=== PATIENT | female | born 1990 | race American Indian/Alaskan Native ===

== ENCOUNTER 2017-05-22 08:23 | Emergency (ER) | payer MEDICAID, OTHER ==
[2017-05-22 08:34] VITALS: BP 119/80
--- NOTE | 2017-05-22 08:42 | EDM.PDOC ---
ED HPI GENERAL MEDICAL PROBLEM - General Chief Complaint: Genitourinary Problem Stated Complaint: 11 WEEKS REHANA [id number] Time Seen by Provider: 05/22/17 08:41 Source of Information: Reports: Patient, RN, RN Notes Reviewed History Limitations: Reports: No Limitations - History of Present Illness INITIAL COMMENTS - FREE TEXT/NARRATIVE: Patient presents to the ER with c/o low abdominal/pelvic pain bilaterally. She states she is 11 weeks and the pain began yesterday afternoon. She denies fever, chills, chest pain, sob. She admits to nausea and vomiting since yesterday afternoon. She rates the pain as an 8/10 and is sharp. She denies any vaginal bleeding or spotting. She does state she began having burning with urination yesterday. Onset Date: 05/21/17 Lower Abdomen Pain Score (Numeric/FACES): 8 - Related Data Allergies Allergy/AdvReac Type Severity Reaction Status Date / Time cefaclor [From Ceclor] Allergy Mild unknown Verified 05/22/17 08:34 Home Meds: Home Meds Vit No.130/Iron/FA [ Vitamins] 1 tab PO DAILY 08/29/15 [History ] Past Medical History - Past Health History Medical/Surgical History: Denies Medical/Surgical History HEENT History: Reports: Impaired Vision Other HEENT History: wears glasses Cardiovascular History: Reports: None Respiratory History: Reports: None Gastrointestinal History: Reports: None Genitourinary History: Reports: Renal Calculus 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: Reports: Dysfunctional Uterine Bleeding, Other OB/BYN History: is due 11/2017 Musculoskeletal History: Reports: Back Pain, Chronic Neurological History: Reports: None Psychiatric History: Reports: None Endocrine/Metabolic History: Reports: Other (See Below) Other Endocrine/Metabolic History: abnormal glucose tolerance test Hematologic History: Reports: None Immunologic History: Reports: None Oncologic (Cancer) History: Reports: None Dermatologic History: Reports: None - Past Surgical History Head Surgeries/Procedures: Reports: None GI Surgical History: Reports: Appendectomy Social & Family History - Tobacco Use Smoking Status *Q: Never Smoker Years of Tobacco use: 3 Packs/Tins Daily: 0.1 Used Tobacco, but Quit: Yes Month Tobacco Last Used: 01/2015 Second Hand Smoke Exposure: No - Caffeine Use Caffeine Use: Reports: None - Alcohol Use Days Per Week of Alcohol Use: 0 - Recreational Drug Use Recreational Drug Use: No ED ROS GENERAL - Review of Systems Review Of Systems: ROS reveals no pertinent complaints other than HPI. ED EXAM - Physical Exam Exam: See Below Exam Limited By: No Limitations General Appearance: Alert, WD/WN, No Apparent Distress Eye Exam: Bilateral Eye: Normal Inspection Ears: Normal External Exam Nose: Normal Inspection, Normal Mucosa, No Blood Throat/Mouth: Normal Inspection, Normal Lips, Normal Teeth, Normal Gums, Normal Oropharynx, Normal Voice, No Airway Compromise Head: Atraumatic, Normocephalic Neck: Normal Inspection, Supple, Non-Tender, Full Range of Motion Respiratory/Chest: No Respiratory Distress, Lungs Clear, Normal Breath Sounds, No Accessory Muscle Use, Chest Non-Tender Cardiovascular: Normal Peripheral Pulses, Regular Rate, Rhythm, No Edema, No Gallop, No JVD, No Murmur, No Rub GI/Abdominal Exam: Normal Bowel Sounds, Soft, No Organomegaly, No Distention, No Abnormal Bruit, No Mass, Pelvis Stable, Tender Rectal Exam: Deferred Back Exam: Normal Inspection, Full Range of Motion Extremities: Normal Inspection, Normal Range of Motion, Non-Tender, No Pedal Edema, Normal Capillary Refill Neurological: Alert, Oriented, Normal Cognition, Normal Gait, No Motor/Sensory Deficits Psychiatric: Normal Affect, Normal Mood Skin Exam: Warm, Dry, Intact, Normal Color, No Rash Lymphatic: No Adenopathy Course - Vital Signs Last Recorded V/S: Last Vital Signs Temp 96.7 F 05/22/17 08:30 Pulse 100 05/22/17 08:30 Resp 16 05/22/17 08:30 BP 119/80 05/22/17 08:30 Pulse Ox 99 05/22/17 08:30 - Orders/Labs/Meds Orders: Active Orders 24 hr Category Date Time Status OB 1st Tri Sgl 1st Gest [US] Urgent Exams 05/22/17 10:05 Taken Labs: Laboratory Tests 05/22/17 05/22/17 05/22/17 Range/Units 08:55 08:55 08:55 WBC 6.9 (5.0-10.0) 10^3/uL RBC 5.14 (4.2-5.4) 10^6/uL Hgb 13.8 D (12.0-16.0) g/dL Hct 41.2 (37.0-47.0) % MCV 80.2 (80-100) fL MCH 26.8 L (27.0-34.0) pg MCHC 33.5 (33.0-35.0) g/dL Plt Count 316 D (150-450) 10^3/uL Neut % (Auto) 67.5 (42.2-75.2) % Lymph % (Auto) 25.5 (20.5-50.1) % [place] % (Auto) 5.7 (2-8) % Eos % (Auto) 1.0 (1.0-3.0) % Baso % (Auto) 0.3 (0.0-1.0) % Sodium 134 L (135-145) mmol/L Potassium 4.3 (3.6-5.0) mmol/L Chloride 103 (101-111) mmol/L Carbon Dioxide 22.0 (21.0-31.0) mmol/L Anion Gap 13.3 BUN 6 L (7-18) mg/dL Creatinine 0.5 L (0.6-1.3) mg/dL Est Cr Clr Drug Dosing 159.46 mL/min Estimated GFR (MDRD) > 60 BUN/Creatinine Ratio 12.00 Glucose 87 (74-105) mg/dL Calcium 9.3 (8.4-10.2) mg/dl Total Bilirubin 0.5 (0.2-1.0) mg/dL AST 19 (10-42) IU/L ALT 10 (10-60) IU/L Alkaline Phosphatase 60 (42-121) IU/L Total Protein 7.6 (6.7-8.2) g/dl Albumin 4.1 (3.2-5.5) g/dl Globulin 3.5 Albumin/Globulin Ratio 1.17 HCG, Quant > 1371 H (0-25) mIU/ml Beta HCG, Quant 633571 mIU/ml Urine Color (YELLOW) Urine Appearance (CLEAR) Urine pH (5.0-9.0) Ur Specific [place] (1.005-1.030) Urine Protein (NEGATIVE) Urine Glucose (UA) (NEGATIVE) Urine Ketones (NEGATIVE) Urine Occult Blood (NEGATIVE) Urine Nitrite (NEGATIVE) Urine Bilirubin (NEGATIVE) Urine Urobilinogen (0.2-1.0) mg/dL Ur Leukocyte Esterase (NEGATIVE) Urine RBC /HPF Urine WBC (0-5/HPF) /HPF Ur Epithelial Cells /HPF Amorphous Sediment (0/HPF) /HPF Urine Bacteria (0-FEW/HPF) /HPF Urine Mucus /LPF 05/22/17 Range/Units 09:20 WBC (5.0-10.0) 10^3/uL RBC (4.2-5.4) 10^6/uL Hgb (12.0-16.0) g/dL Hct (37.0-47.0) % MCV (80-100) fL MCH (27.0-34.0) pg MCHC (33.0-35.0) g/dL Plt Count (150-450) 10^3/uL Neut % (Auto) (42.2-75.2) % Lymph % (Auto) (20.5-50.1) % [place] % (Auto) (2-8) % Eos % (Auto) (1.0-3.0) % Baso % (Auto) (0.0-1.0) % Sodium (135-145) mmol/L Potassium (3.6-5.0) mmol/L Chloride (101-111) mmol/L Carbon Dioxide (21.0-31.0) mmol/L Anion Gap BUN (7-18) mg/dL Creatinine (0.6-1.3) mg/dL Est Cr Clr Drug Dosing mL/min Estimated GFR (MDRD) BUN/Creatinine Ratio Glucose (74-105) mg/dL Calcium (8.4-10.2) mg/dl Total Bilirubin (0.2-1.0) mg/dL AST (10-42) IU/L ALT (10-60) IU/L Alkaline Phosphatase (42-121) IU/L Total Protein (6.7-8.2) g/dl Albumin (3.2-5.5) g/dl Globulin Albumin/Globulin Ratio HCG, Quant (0-25) mIU/ml Beta HCG, Quant mIU/ml Urine Color Dark yellow (YELLOW) Urine Appearance Turbid (CLEAR) Urine pH 8.5 (5.0-9.0) Ur Specific [place] 1.020 (1.005-1.030) Urine Protein 30 H (NEGATIVE) Urine Glucose (UA) Negative (NEGATIVE) Urine Ketones Negative (NEGATIVE) Urine Occult Blood Negative (NEGATIVE) Urine Nitrite Negative (NEGATIVE) Urine Bilirubin Negative (NEGATIVE) Urine Urobilinogen 0.2 (0.2-1.0) mg/dL Ur Leukocyte Esterase Trace H (NEGATIVE) Urine RBC 0-5 /HPF Urine WBC 5-10 H (0-5/HPF) /HPF Ur Epithelial Cells Moderate H /HPF Amorphous Sediment Many H (0/HPF) /HPF Urine Bacteria Rare (0-FEW/HPF) /HPF Urine Mucus Few H /LPF - Re-Assessments/Exams Free Text/Narrative Re-Assessment/Exam: 05/22/17 12:39 Patient was observed leaving the ER with her children. She states she had to urinate and could not wait for her ultrasound to be completed. The ultrasound was not completed as the tech was busy with another procedure. She states she will follow up with her primary care provider. A script was given to her for Macrobid for treatment of a UTI. She refuses to come back to the room. It was explained that we would like to have the ultrasound completed for further evaluation of her abdominal pain. Patient refuses. Departure - Departure Time of Disposition: 12:35 Disposition: Against Medical Advice 07 Clinical Impression: UTI, Urinary tract infectious disease - Discharge Information Forms: ED Department Discharge - My Orders Last 24 Hours: My Active Orders 05/22/17 10:05 OB 1st Tri Sgl 1st Gest [US] Urgent - Assessment/Plan Last 24 Hours: My Active Orders 05/22/17 10:05 OB 1st Tri Sgl 1st Gest [US] Urgent
[2017-05-22 09:22] LABS: CHLORIDE,CL 103 mmol/L (101-111); SODIUM,NA 134 mmol/L (135-145)
== END 2017-05-22 12:15 | disposition left against medical advice (07) ==
LOC: DL.ED 08:23
DX: O23.41 Unspecified infection of urinary tract in pregnancy, first trimester (principal); Z87.442 Personal history of urinary calculi; Z90.49 Acquired absence of other specified parts of digestive tract; Z87.891 Personal history of nicotine dependence; Z88.1 Allergy status to other antibiotic agents; Z3A.11 11 weeks gestation of pregnancy
CPT/HCPCS: 36415; 76801; 80053; 81001; 84702; 85025; 99284

== ENCOUNTER 2017-11-29 22:21 | Inpatient (IN) | payer MEDICAID, OTHER ==
[2017-11-30] MEDS ORDERED: Misoprostol 400 MCG (4 X 100 MCG TAB) RECTAL PRN (00:16)
[2017-11-30] MEDS ORDERED: Sodium Chloride 0.9% 10 ML Syringe FLUSH PRN (00:16)
[2017-11-30] MEDS ORDERED: Carboprost Tromethamine 250 MCG/1 ML Amp IM PRN (00:16)
[2017-11-30] MEDS ORDERED: Acetaminophen 325 MG Tab PO PRN (00:16)
[2017-11-30] MEDS ORDERED: fentaNYL 100 MCG/2 ML SDV IVPUSH PRN (00:16)
[2017-11-30] MEDS ORDERED: Tranexamic Acid 1,000 MG in Sodium Chloride 0.9% 100 ML IV PRN (00:16)
[2017-11-30] MEDS ORDERED: Lidocaine 1% 30 ML SDV INJECT PRN (00:16)
[2017-11-30] MEDS ORDERED: Methylergonovine 0.2 MG/1 ML Amp IM PRN (00:16)
[2017-11-30] MEDS ORDERED: Ondansetron 4 MG/2 ML SDV IV PRN (00:16)
[2017-11-30] MEDS ORDERED: Lactated Ringers 500 ML IV ONE (00:16)
[2017-11-30] MEDS ORDERED: Penicillin G Potassium 5,000,000 Unit Vial IV ONE (00:30)
[2017-11-30] MEDS ORDERED: Penicillin G Potassium 5 MILLUNITS in Sodium Chloride 0.9% 100 ML IV ONE (00:30)
[2017-11-30] MEDS ORDERED: Oxytocin/Normal Saline 30 UNIT/500 ML BAG IV SCH (00:30)
[2017-11-30] MEDS: Lactated Ringers 1,000 ML IV SCH ×2 (01:04→02:04)
[2017-11-30] MEDS: Penicillin G Potassium 3 MILLUNITS in Sodium Chloride 0.9% 100 ML IV SCH ×2 (04:58→09:12)
--- NOTE | 2017-11-30 06:59 | HP ---
CHIEF COMPLAINT: Irregular contractions. HISTORY OF PRESENT ILLNESS: A 27-year-old, 3, para 2-0-0-2, currently at 38 and 1/7 weeks based on her working due date of 12/12/2017, set by last menstrual period and confirmed with first trimester ultrasound, presents to Labor and Delivery complaining of contractions that started around 4:00 yesterday afternoon and although have been somewhat irregular are not going away, will frequently get stronger, and then space out. When she was initially admitted to the hospital, she needed to be started on group B strep prophylaxis and after a bolus of fluid that seemed to make the contractions go away and she was able to get some sleep, and then shortly before I called in, she started having increased force and frequency again of those contractions. Intermittent back pain is her main complaint with them. No leakage of fluid or vaginal bleeding. movement has been good. No headaches or blurry vision. No chest pain or shortness of breath. No symptoms of dysuria, diarrhea, constipation, nausea, or vomiting. OBSTETRICAL HISTORY: 1. On 03/17/2011 at 41 and 2/7 weeks, female infant, vacuum-assisted vaginal delivery, weighing 3969 g under intrathecal anesthesia after 18 hours of labor, scores of 9 and 9. No stitches were needed. This was an induction using Pitocin and Cytotec. She was delivered by Dr. Fernández here in [place], and the baby's name is Juvenal. 2. On 10/28/2015, 40 weeks 5 days' gestation male , spontaneous vaginal delivery, weighing 4120 g, male under intrathecal anesthesia after 6- 1/2 hours of labor and pushed for about 3 minutes. scores were 9 and 9, that complicated by a kidney stone causing threatened labor and she had a category 2 tracing when she was complete, but the baby tolerated pushing well. She was delivered here in [place] by myself and baby's name is Parker. LABORATORY DATA THIS : Blood type A positive. Antibody screen negative. Rubella immune. GC and Chlamydia negative. UDS negative. Wet prep positive for clue cells and treated. HIV negative. Hepatitis C negative. Quad screen was normal. Glucose tolerance test normal. She has had her Tdap and influenza vaccines. MEDICATIONS: Have included: 1. Psyllium. 2. Vitamin D. 3. Metoclopramide. 4. vitamin. 5. Ranitidine. PAST MEDICAL HISTORY: Abnormal uterine bleeding, dysmenorrhea with clotting. Ears are pierced. She has had no tattoos. No IV drug use and no transfusions. She has irregular menstrual cycles. PAST SURGICAL HISTORY: Laparoscopic appendectomy. FAMILY HISTORY: Mother with thyroid disease. Father's side of the family history is unknown. Diabetes in several maternal family relatives. Diabetes in a maternal grandfather. No history of heart disease or cancer. SOCIAL HISTORY: The patient is single. She has been with her significant other, Shakeel Swartz, for several years and he is the father of her other children. She is a former smoker and quit in March of 2017. She is still working at [employer] and Shakeel works at the [employer]. ALLERGIES: Ceclor. Unsure of what exactly the reaction was. REVIEW OF SYSTEMS: As per the history of present illness. No other pertinent positives or negatives at this time. OBJECTIVE: Vital Signs: Temperature is 98.1, pulse 100, blood pressure 115/69, respiratory rate of 20. HEENT: Grossly unremarkable. Heart: Regular without obvious murmur. Lungs: Clear to auscultation bilaterally. Abdomen: Soft and nontender. Positive bowel sounds in the upper quadrants. Pelvic: monitoring strip shows baseline heart rate is 125 beats per minute. Moderate lhql-uj-pajg variability and good reactivity. [place] showing interactions about every 4 minutes, previously more active, category 1 tracing. Cervix 3 cm dilated, 80% effaced. Bag of water is intact. vertex is higher than expected. Anticipate patient's bladder was quite full at the time of the check, and she declined attempted artificial rupture of membranes. Extremities: No edema, erythema, or tenderness noted. Neurological: Appropriate. LAB: Hemoglobin 10.1, platelet count 225. ASSESSMENT: 1. A 38 and 1/7 weeks' intrauterine based on last menstrual period in a 3, para 2-0-0-2. 2. Blood type A positive. Rubella immune. Group B streptococcus positive, being treated with penicillin, has received 2 doses. 3. Heartburn. 4. Varicella susceptible. 5. History of delivery of macrosomic infants. PLAN: At this time, I am going to have the patient go ahead and take a bath and ambulate more to see if the contractions hot die picker and are more regular and if she continues to have some cervical change. So far, it has primarily been some effacement and very little dilatation. Check her back after a few hours. Anticipating artificial rupture of membranes for augmentation at that time. The patient's questions have been answered thus far. [facility] /[id number]
[2017-11-30 13:13] VITALS: BP 119/83
--- NOTE | 2017-12-01 02:29 | DISCH ---
ADMISSION DIAGNOSES: 1. A 38 and 1/7 weeks' intrauterine . 2. 3, para 2-0-0-2. 3. Heartburn. 4. History of macrosomic . DISCHARGE DIAGNOSES: 1. A 38 and 1/7 weeks' intrauterine . 2. 3, para 2-0-0-2. 3. Heartburn. 4. History of macrosomic . 5. False labor. BRIEF HISTORY: See history and physical for full details. HOSPITAL COURSE: Unremarkable. I checked on the patient before 6:00 a.m., and cervix was 3 cm dilated, and 80% effaced, posterior position, and contractions at that time had just started picking back up again. Discussed reassessing her after 08:00 and I did so, cervix remained unchanged. Had patient up ambulating and taking a tub bath. I came back to check on her here around 1:00 this afternoon, cervix remained unchanged, contractions have spaced out every 6 to 12 minutes. Nursing staff reports patient complaining more of back pain because of lying on the bed and of burning with infusion of the penicillin when she has her actual contractions. OBJECTIVE: Vital Signs: Have remained stable and within normal limits. Cervix: Unchanged from the last 2 examinations. She has had a little bit of pink discharge from the vaginal exams. No other leakage of fluid. Baby remains active. Category I tracing continued as well. DISPOSITION: Home. INSTRUCTIONS: 1. Activity: As tolerated. 2. Diet: Continue regular diet. 3. Advised to return to Labor and delivery if she has onset of symptoms of preeclampsia, labor, has any heavy vaginal bleeding, leakage of fluid, decreased movement, or any other concerns arise. Otherwise, she can cancel her clinic appointment for tomorrow and will plan on seeing her at 6:00 a.m., on the for induction of labor due to history of macrosomia if not delivered prior to that. Questions were answered and she was comfortable with the plan. [facility] /[id number] ASTRID
== END 2017-11-30 13:15 | disposition home or self-care (01) | DRG 780 ==
LOC: DL.OBCHECK 22:21 → DL.OB 23:52 → OBSVTOIN 11-30 00:16
PROVIDERS: ADMIT Obstetrics & Gynecology; ATTEND Obstetrics & Gynecology
DX: O47.1 False labor at or after 37 completed weeks of gestation (principal); O99.820 Streptococcus B carrier state complicating pregnancy; Z3A.38 38 weeks gestation of pregnancy; Z87.891 Personal history of nicotine dependence; Z88.8 Allergy status to other drugs, medicaments and biological substances
CPT/HCPCS: 36415; 85027; J2540; J7050; J7120

== ENCOUNTER 2017-12-05 06:06 | Inpatient (IN) | payer MEDICAID, OTHER ==
[~2017-12-05 06:06] MED LIST: Acetaminophen 325 MG Tab PO PRN; Carboprost Tromethamine 250 MCG/1 ML Amp IM PRN; Lactated Ringers 1,000 ML IV SCH; Lactated Ringers 500 ML IV ONE; Lidocaine 1% 30 ML SDV INJECT PRN; Methylergonovine 0.2 MG/1 ML Amp IM PRN; Misoprostol 400 MCG (4 X 100 MCG TAB) RECTAL PRN; Nalbuphine 20 MG/1 ML Amp IM ONE; Ondansetron 4 MG/2 ML SDV IV PRN; Penicillin G Potassium 3 MILLUNITS in Sodium Chloride 0.9% 100 ML IV SCH; Penicillin G Potassium 5 MILLUNITS in Sodium Chloride 0.9% 100 ML IV ONE; Sodium Chloride 0.9% 10 ML Syringe FLUSH PRN; Tranexamic Acid 1,000 MG in Sodium Chloride 0.9% 100 ML IV PRN
[2017-12-05] MEDS: Lactated Ringers 1,000 ML IV SCH ×3 (06:40→21:51)
[2017-12-05] MEDS: Oxytocin/Normal Saline 30 UNIT/500 ML BAG IV SCH (08:44)
[2017-12-05] MEDS ORDERED: Oxytocin/Normal Saline 30 UNIT/500 ML BAG IV SCH (10:00)
[2017-12-05] MEDS: Penicillin G Potassium 3 MILLUNITS in Sodium Chloride 0.9% 100 ML IV SCH ×5 (12:35→20:26)
--- NOTE | 2017-12-05 14:51 | HP ---
CHIEF COMPLAINT: Induction of labor for macrosomia. HISTORY OF PRESENT ILLNESS: This is a 27-year-old, 3, para 2-0-0-2, currently 39 weeks 0 days' gestation based on working due date of 12/12/2017 set by last menstrual period, confirmed with first trimester ultrasound. The patient presents to Labor and Delivery complaining of contractions that have started yesterday evening, have been somewhat irregular, but are feeling stronger. We are inducing her today for history of macrosomia. No leakage of fluid or vaginal bleeding. movement has been good. No headaches or blurry vision. No chest pain or shortness of breath. No symptoms of dysuria, diarrhea, constipation, nausea, or vomiting. OBSTETRICAL HISTORY: 1. On 03/17/2011, 41 and 2/7 weeks' female , vacuum-assisted vaginal delivery, weighing 3969 g, under intrathecal anesthesia after 18 hours of labor. scores of 9 and 9. No stitches were needed. This was an induction using Pitocin and Cytotec. She was delivered by Dr. Fernández here in [place]. Baby's name is Girish. 2. On 10/28/2015, 40 weeks and 5 days' gestation male infant, spontaneous vaginal delivery, weighing 4120 g, male infant under intrathecal anesthesia. After 6.5 hours of labor, pushed for about 3 minutes. scores were 9 and 9. complicated by kidney stone causing threatened labor. In labor Category II tracing when she was complete, baby tolerated pushing well. Baby delivered in [place] by Dr. Lizabeth Palacios. Baby is named Roseline. LABORATORY DATA THIS : Blood type A positive. Antibody screen negative. Rubella immune. GC and chlamydia negative. UDS negative. Wet prep positive for clue cells and treated. HIV negative. Hepatitis C negative. Quad screen normal. Glucose tolerance test normal. She has had her Tdap and influenza vaccines. MEDICATIONS used in included: 1. Ranitidine. 2. Psyllium. 3. Vitamin D. 4. Metoclopramide. 5. vitamin. 6. Rolaids. 7. Rocephin. 8. Omnicef. PAST MEDICAL HISTORY: Abnormal uterine bleeding, dysmenorrhea with clotting. Ears are pierced. She has no tattoos. No IV drug use. No transfusions. She has irregular menstrual cycles. PAST SURGICAL HISTORY: Laparoscopic appendectomy. FAMILY HISTORY: Mother with thyroid disease. Father's side of the family history is unknown. Diabetes in several maternal family relatives. Diabetes in a maternal grandfather. No history of heart disease or cancer. SOCIAL HISTORY: The patient is single. She has been with her significant other, Shakeel Swartz, for several years. He is the father of her other children. She is a former smoker and quit in 03/2017. She is working at [employer], and Shakeel works at a [employer]. ALLERGIES: Ceclor, unsure of reaction to that medication. REVIEW OF SYSTEMS: As per history of present illness. OBJECTIVE: Vital Signs: Temperature 97.8, pulse of 90, blood pressure 120/81, and respirations 18 with oxygen saturation 97% on room air. HEENT: Atraumatic and normocephalic. Pupils, PERRLA. Heart: Regular without murmur. Lungs: Clear to auscultation bilaterally. Abdomen: Soft and nontender. Gravid in size. Positive bowel sounds. Pelvic: monitoring strip shows baseline heart rate at 130 beats per minute. Moderate styb-ok-mcii variability. Good reactivity. The patient's [place] showing irregular mild contractions, category 1 tracing. Per physical exam on 11/29/2017, cervix was 3 cm dilated, 80% effaced. Due to GBS positive status, we will be deferring repeat pelvic exam until after penicillin has been given. Bag of lama is intact. Extremities: No edema, erythema, or tenderness. LABORATORY DATA: Hemoglobin is 10.4, platelets 229. ASSESSMENT: 1. A 39 and 0/7 weeks' intrauterine based on last menstrual period in a 3, para 2-0-0-2, with history of macrosomia. 2. Blood type A positive, GBS positive treated with two doses penicillin, Rubella immune 3. Heartburn 4. Varicella susceptible 5. History of macrosomic infants PLAN Admit to Labor and Delivery for induction of labor. Due to GBS status, we will defer cervical exam until she is feeling more pressure and has regular contractions. At that time, we will decideif artificial rupture membranes is appropriate. Magdalene is planning to have intrathecal pain management. All questions answered. [facility] /[id number] Patient seen and examined. Agree with note as scribed on my behalf. -[facility] [id number]. MTDD
--- NOTE | 2017-12-05 18:21 | PCM.PNLD ---
<Meghan Powell - Last Filed: 12/05/17 18:17> Labor Progress Note - VS & Meds Vital Signs: Last Vital Signs Temp 98.7 F 12/05/17 17:00 Pulse 85 12/05/17 17:45 Resp 16 12/05/17 17:45 BP 133/78 12/05/17 17:45 Pulse Ox 97 12/05/17 06:50 Active Medications: Current Medications Acetaminophen (Tylenol) 650 mg PO Q4H PRN PRN Reason: Pain (Mild 1-3) and fever Carboprost Tromethamine (Hemabate Ds) 250 mcg IM ASDIRECTED PRN PRN Reason: HEMORRHAGE Lactated Ringer's (Ringers, Lactated) 1,000 mls @ 125 mls/hr IV ASDIRECTED JUAN PABLO Last Admin: 12/05/17 12:36 Dose: 125 mls/hr Penicillin G Potassium 3 (millunits/ Sodium Chloride) 100 mls @ 200 mls/hr IV Q4H JUAN PABLO Last Admin: 12/05/17 16:30 Dose: 200 mls/hr Tranexamic Acid 1,000 mg/ (Sodium Chloride) 110 mls @ 660 mls/hr IV ONETIME PRN PRN Reason: Bleeding Oxytocin/Sodium Chloride (Pitocin In Ns 30 Unit/500 Ml) 30 unit in 500 mls @ 2 mls/hr IV TITRATE [facility]; Protocol Last Titration: 12/05/17 17:45 Dose: 14 munits/min, 14 mls/hr Lidocaine HCl (Xylocaine-Mpf 1%) 10 ml INJECT ASDIRECTED PRN PRN Reason: Perineal Repair Methylergonovine Maleate (Methergine) 0.2 mg IM ASDIRECTED PRN PRN Reason: Hemorrhage Misoprostol (Cytotec) 800 mcg RECTAL ASDIRECTED PRN PRN Reason: Hemorrhage Ondansetron HCl (Zofran) 4 mg IV Q4H PRN PRN Reason: Nausea/Vomiting Sodium Chloride (Saline Flush) 10 ml FLUSH ASDIRECTED PRN PRN Reason: Keep Vein Open Discontinued Medications Acetaminophen (Tylenol) 650 mg PO Q4H PRN PRN Reason: Pain (Mild 1-3) and fever Carboprost Tromethamine (Hemabate Ds) 250 mcg IM ASDIRECTED PRN PRN Reason: HEMORRHAGE Lactated Ringer's (Ringers, Lactated) 500 mls @ 999 mls/hr IV .BOLUS ONE Stop: 12/04/17 19:24 Lactated Ringer's (Ringers, Lactated) 1,000 mls @ 125 mls/hr IV ASDIRECTED JUAN PABLO Penicillin G Potassium 5 (millunits/ Sodium Chloride) 100 mls @ 200 mls/hr IV ONETIME ONE Stop: 12/04/17 19:23 Last Admin: 12/05/17 08:28 Dose: 200 mls/hr Penicillin G Potassium 3 (millunits/ Sodium Chloride) 100 mls @ 200 mls/hr IV Q4HR JUAN PABLO Tranexamic Acid 1,000 mg/ (Sodium Chloride) 110 mls @ 660 mls/hr IV ONETIME PRN PRN Reason: Bleeding Oxytocin/Sodium Chloride (Pitocin In Ns 30 Unit/500 Ml) 30 unit in 500 mls @ 2 mls/hr IV TITRATE JUAN PABLO; Protocol Lidocaine HCl (Xylocaine-Mpf 1%) 10 ml INJECT ASDIRECTED PRN PRN Reason: Perineal Repair Methylergonovine Maleate (Methergine) 0.2 mg IM ASDIRECTED PRN PRN Reason: Hemorrhage Misoprostol (Cytotec) 800 mcg RECTAL ASDIRECTED PRN PRN Reason: Hemorrhage Nalbuphine HCl (Nubain) 20 mg IM ONETIME ONE Stop: 12/05/17 06:01 Ondansetron HCl (Zofran) 4 mg IV Q4H PRN PRN Reason: Nausea/Vomiting Sodium Chloride (Saline Flush) 10 ml FLUSH ASDIRECTED PRN PRN Reason: Keep Vein Open - Uterine Contractions Uterine Monitoring Mode: External [place] Contraction Frequency (min): 2-3 Contraction Duration (sec): 60-90 Contraction Intensity: Moderate Uterine Resting Tone: Soft - Vaginal Exam Dilation (cm): 3 Effacement (Percent): 50 Station: -1 Cervical Position: Posterior Sterile Vaginal Exam Performed By: Meghan Powell (AROM ) - Labor Progress (Free Text) Labor Progress: Magdalene resting in bed, having mild discomfort. She states the contractions are more frequent, and describes the intensity as "they're okay." When asked if the current contractions are more, less, or the same severity as this morning, her response is "they're okay." Cervical exam shows no change in cervical dilation from [address] Shah consulted, order given to proceed with AROM. AROM of membranes attempted. [place] hook "give" through a barrier, no horen of fluid or blood. 5 minutes after AROM procedure, patient states the contractions "are a lot stronger than before" Tyrone CLAUDIO3 <Zayra Salinaselaricosme Harrington - Last Filed: 12/05/17 21:42> Labor Progress Note - VS & Meds Vital Signs: Last Vital Signs Temp 98.7 F 12/05/17 17:00 Pulse 86 12/05/17 18:45 Resp 16 12/05/17 18:45 BP 144/88 H 12/05/17 18:45 Pulse Ox 97 12/05/17 06:50 Active Medications: Current Medications Acetaminophen (Tylenol) 650 mg PO Q4H PRN PRN Reason: Pain (Mild 1-3) and fever Carboprost Tromethamine (Hemabate Ds) 250 mcg IM ASDIRECTED PRN PRN Reason: HEMORRHAGE Lactated Ringer's (Ringers, Lactated) 1,000 mls @ 125 mls/hr IV ASDIRECTED JUAN PABLO Last Admin: 12/05/17 12:36 Dose: 125 mls/hr Penicillin G Potassium 3 (millunits/ Sodium Chloride) 100 mls @ 200 mls/hr IV Q4H JUAN PABLO Last Admin: 12/05/17 20:26 Dose: 200 mls/hr Tranexamic Acid 1,000 mg/ (Sodium Chloride) 110 mls @ 660 mls/hr IV ONETIME PRN PRN Reason: Bleeding Oxytocin/Sodium Chloride (Pitocin In Ns 30 Unit/500 Ml) 30 unit in 500 mls @ 2 mls/hr IV TITRATE JUAN PABLO; Protocol Last Titration: 12/05/17 17:45 Dose: 14 munits/min, 14 mls/hr Lidocaine HCl (Xylocaine-Mpf 1%) 10 ml INJECT ASDIRECTED PRN PRN Reason: Perineal Repair Methylergonovine Maleate (Methergine) 0.2 mg IM ASDIRECTED PRN PRN Reason: Hemorrhage Misoprostol (Cytotec) 800 mcg RECTAL ASDIRECTED PRN PRN Reason: Hemorrhage Ondansetron HCl (Zofran) 4 mg IV Q4H PRN PRN Reason: Nausea/Vomiting Last Admin: 04/16/18 21:19 Dose: 4 mg Sodium Chloride (Saline Flush) 10 ml FLUSH ASDIRECTED PRN PRN Reason: Keep Vein Open Discontinued Medications Acetaminophen (Tylenol) 650 mg PO Q4H PRN PRN Reason: Pain (Mild 1-3) and fever Bupivacaine HCl/Dextrose (Marcaine 0.75% Spinal) Confirm Administered Dose 2 ml .ROUTE .STK-MED ONE Stop: 12/05/17 21:26 Carboprost Tromethamine (Hemabate Ds) 250 mcg IM ASDIRECTED PRN PRN Reason: HEMORRHAGE Epinephrine HCl (Adrenalin) Confirm Administered Dose 1 mg .ROUTE .STK-MED ONE Stop: 12/05/17 21:26 Fentanyl (Sublimaze) Confirm Administered Dose 100 mcg .ROUTE .STK-MED ONE Stop: 12/05/17 21:26 Lactated Ringer's (Ringers, Lactated) 500 mls @ 999 mls/hr IV .BOLUS ONE Stop: 12/04/17 19:24 Last Admin: 12/05/17 21:19 Dose: 999 mls/hr Lactated Ringer's (Ringers, Lactated) 1,000 mls @ 125 mls/hr IV ASDIRECTED JUAN PABLO Penicillin G Potassium 5 (millunits/ Sodium Chloride) 100 mls @ 200 mls/hr IV ONETIME ONE Stop: 12/04/17 19:23 Last Admin: 12/05/17 08:28 Dose: 200 mls/hr Penicillin G Potassium 3 (millunits/ Sodium Chloride) 100 mls @ 200 mls/hr IV Q4HR JUAN PABLO Tranexamic Acid 1,000 mg/ (Sodium Chloride) 110 mls @ 660 mls/hr IV ONETIME PRN PRN Reason: Bleeding Oxytocin/Sodium Chloride (Pitocin In Ns 30 Unit/500 Ml) 30 unit in 500 mls @ 2 mls/hr IV TITRATE JUAN PABLO; Protocol Lidocaine HCl (Xylocaine-Mpf 1%) 10 ml INJECT ASDIRECTED PRN PRN Reason: Perineal Repair Lidocaine HCl (Xylocaine-Mpf 1%) Confirm Administered Dose 5 ml .ROUTE .STK-MED ONE Stop: 12/05/17 21:26 Methylergonovine Maleate (Methergine) 0.2 mg IM ASDIRECTED PRN PRN Reason: Hemorrhage Misoprostol (Cytotec) 800 mcg RECTAL ASDIRECTED PRN PRN Reason: Hemorrhage Nalbuphine HCl (Nubain) 20 mg IM ONETIME ONE Stop: 12/05/17 06:01 Ondansetron HCl (Zofran) 4 mg IV Q4H PRN PRN Reason: Nausea/Vomiting Sodium Chloride (Saline Flush) 10 ml FLUSH ASDIRECTED PRN PRN Reason: Keep Vein Open Sufentanil Citrate (Sufenta) Confirm Administered Dose 50 mcg .ROUTE .STK-MED ONE Stop: 12/05/17 21:26 - Labor Progress (Free Text) Labor Progress: Procedure performed under supervision. Agree with note as scribed on my behalf. -[facility] 12/05/17 [id number].
[2017-12-05] MEDS ORDERED: fentaNYL 100 MCG/2 ML SDV ONE (21:25)
[2017-12-05] MEDS ORDERED: EPINEPHrine 1 MG/ML SDV ONE (21:25)
[2017-12-05] MEDS ORDERED: Bupivacaine 0.75%/D5W 2 ML Amp ONE (21:25)
--- NOTE | 2017-12-05 22:21 | PCM.PRNOTE ---
- Free Text/Narrative Note: Requested to provide analgesia to full term patient in severe pain. Upon entering the room, patient is supine in bed complaining of severe abdominal/ pelvic pain and discomfort. Procedure was discussed with patient including adverse outcomes and expectations. Pt consented to analgesia, SAB/IT. Pt placed into a sitting position. Landmarks for SAB/IT were identified and marked. Hands were washed and appropriate PPE was applied. Back was prepped with betadine x3. A sterile, transparent, fenestrated drape was applied. Excess betadine was removed. Using 3 mL of a 1% lidocaine solution, a skin wheel was placed at the L3/L4 interspace. A 24 ga (4 inch) Pencan spinal needle was inserted until positive for CSF. Negative for heme or paresthesias. Injected fentanyl 20 mcg, sufentanil 10 mcg, and 11 mg of a 0.75% bupivacaine solution with an epi wash. Pt was placed left lateral position for approximately 20 minutes. There were zero complications or adverse outcomes. Will continue to monitor.
--- NOTE | 2017-12-05 23:21 | PN ---
DATE: 12/05/2017 SUBJECTIVE: A 27-year-old, 3, para 2, currently at 39 and 0/7 weeks, here for induction of labor because of history of macrosomia, essentially on Pitocin throughout the day currently at 14. Contractions have gotten a little stronger, but they are still very well tolerated and do not make her as uncomfortable as would be expected. 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 The patient has been up and walking around and does not think that she has been leaking any fluid either. OBJECTIVE: Vital Signs: Blood pressure is 140/86. She is afebrile. Baseline heart rate of 130 beats per minute with moderate argv-gd-loda variability. Accelerations are noted. [place] showing contractions every 2-1/2 minutes. Genitourinary: Cervix examined and remains 3 cm dilated, 80% effaced. Artificial rupture of membranes performed at this time with return of good clear fluid. The patient tolerated well. ASSESSMENT: 1. 39 and 0/7 weeks' intrauterine , here for induction because of history of macrosomic infant. 2. Blood type A positive, rubella immune, group B strep positive, being treated with penicillin. 3. History of heartburn. 4. Susceptibility to varicella. 5. Vitamin D deficiency. 6. Anemia of . 7. Now status post artificial rupture of membranes. PLAN: Continue active labor management. We will continue increasing Pitocin and anticipating cervical change as we progress through potential for transition to section if the patient actually does not go into labor, which would be quite unfortunate, so we would trial of stopping Pitocin and restarting if necessary prior to that. The patient's questions were answered. [facility] /[id number] ASTRID
[2017-12-06] MEDS ORDERED: Benzocaine/Menthol 20%-0.5% Spray 56 GM Canister TOP PRN (00:13)
[2017-12-06] MEDS ORDERED: Famotidine 20 MG Tab PO PRN (00:13)
[2017-12-06] MEDS ORDERED: Simethicone 80 MG Tab.Chew PO PRN (00:13)
[2017-12-06] MEDS: Oxytocin/Normal Saline 30 UNIT/500 ML BAG IV SCH (01:22)
[2017-12-06] MEDS: Penicillin G Potassium 3 MILLUNITS in Sodium Chloride 0.9% 100 ML IV SCH (01:26)
--- NOTE | 2017-12-06 01:33 | PN ---
DATE: 12/05/2017 SUBJECTIVE: The patient is now status post intrathecal and resting quite comfortably. Nurses reached a maximum of 20 on the Pitocin, and rechecked the patient's cervix and essentially it was unchanged from after her intrathecal, and they requested a new maximum for the Pitocin that they could administer. Verbal order was given that they could increase to 30, but that an intrauterine pressure catheter should be placed for safety. OBJECTIVE: Vital Signs: Blood pressure 111/64, pulse 76. The patient is afebrile. Amniotic fluid remained clear. Cervix is 6 cm dilated, 95% to 100% effaced, mid position, and 0 station. She has made progress from when I checked her last, but overall unchanged when the nurse checked her last. IUPC was placed without difficulties, appropriate flashback, and no bleeding noted. Initial contractions appear to be about 60 MVUs apiece, and occurring every few minutes. We will see how she is after a couple of hours. If she is making adequate cervical change, we will continue to increase Pitocin as able to get stronger contractions. ASSESSMENT: Unchanged from last exam, although, we do seem to have some dysfunctional labor with a lack of adequate progress in stage I. PLAN: Continue active labor management. Continue increasing Pitocin. Discussed with patient, boyfriend, and her friend indications, risks, benefits of primary section including but not limited to potential for infection and plan for preoperative antibiotics, potential for need of blood transfusion and its inherent risks, potential for injury to any internal organs and adjacent structures including and not limited to uterus, fallopian tubes, ovaries, intestines, bladder, uterus, and even the risk of injury to the baby, and potential for transfer to a higher level of care if any complications arise for patient or her baby. Her questions were answered. [facility] /[id number] ASTRID
--- NOTE | 2017-12-06 03:00 | DEL ---
DATE: 12/05/2017 PREPROCEDURE DIAGNOSES: 1. A 39 and 0/7 weeks' intrauterine based on last menstrual period and 11-week ultrasound. 2. 3, para 2-0-0-2. 3. History of delivery of macrosomic . 4. Blood type A positive, rubella immune, and group B strep positive. 5. Heartburn. 6. Susceptible varicella. 7. Vitamin D deficiency. 8. Anemia of . 9. Recent diagnosis of erysipelas. POSTPROCEDURE DIAGNOSES: 1. A 39 and 0/7 weeks' intrauterine based on last menstrual period and 11-week ultrasound. 2. 3, now para 3-0-0-3. 3. History of delivery of macrosomic infant. 4. Blood type A positive, rubella immune, and group B strep positive. 5. Heartburn. 6. Susceptible varicella. 7. Vitamin D deficiency. 8. Anemia of . 9. Recent diagnosis of erysipelas. 10.Status post spontaneous vaginal delivery of viable female . BRIEF HISTORY: A 27-year-old female admitted to the hospital with the above- listed diagnoses with plans for induction of labor because of a history of macrosomia. Induction initiated with IV Pitocin. At 05:00 in the afternoon, she still was not making any adequate cervical change despite increased force, frequency, and regularity of contractions. 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 At 07:30 tonight, I came in and performed artificial rupture of membranes with return of clear fluid. After that, patient received an intrathecal, and then at around 11:30 in the evening, cervix was finally 6 cm dilated, and 100% effaced, but had not changed since placement of the intrathecal, so intrauterine pressure catheter was placed. Shortly thereafter, patient went from 6 cm to complete in a very brief period of time and had a successful vaginal delivery as outlined below. DESCRIPTION OF PROCEDURE: After approximately 5 hours of stage I labor, the patient delivered a viable female over intact perineum in the SHAHBAZ position after less than 6 minutes of pushing. Baby was dried and stimulated. Mouth and nose were bulb suctioned, and baby placed up on mother's abdomen after approximate 45 seconds delay, 3-vessel umbilical cord was doubly clamped and then cut by the baby's father, and baby taken over to the warmer for further evaluation. Cord blood sample was obtained and placenta then delivered by gentle cord traction and concomitant uterine massage. Along with the placenta there was a large amount of blood and clot. Labia and vagina were inspected and there were no lacerations. I was unable to adequately visualize the cervix. The patient tolerated procedure well. COMPLICATIONS: None. ESTIMATED BLOOD LOSS: 400 mL. DISPOSITION: Mother and baby to stay in the room at this time and initiate . FINDINGS: Viable female , scores of 8 and 9, weight 7 pounds 11 ounces, 3485 g. [facility] /[id number]
[2017-12-06] MEDS: Ibuprofen 800 MG Tab PO PRN ×2 (05:31→14:25)
--- NOTE | 2017-12-06 06:22 | PN ---
DATE: 12/06/2017 SUBJECTIVE: day #1. The patient is actually about 6 hours , status post spontaneous vaginal delivery without lacerations, doing well. She is finally able to move her legs and voiding. She has not had a bowel movement yet. She has not really been up to ambulate much. Reports the bleeding has been similar to her last delivery and she has no acute concerns. OBJECTIVE: Vital Signs: She is afebrile. Pulse of 92, blood pressure 121/72. Heart: Regular without obvious murmur. Lungs: Clear to auscultation bilaterally. Abdomen: Soft, nontender. Fundus is firm and at the umbilicus. Extremities: Trace edema bilaterally. No erythema or tenderness noted. ASSESSMENT: 1. Status post spontaneous vaginal delivery without complications. 2. Group B strep positive. 3. History of heartburn. 4. Varicella susceptible. 5. Vitamin D deficiency. 6. Anemia of and acute blood loss. PLAN: Continue normal postvaginal delivery cares. Start iron twice daily and resume her vitamin. Continue to work with the nurses on breast-feeding her infant. Her questions have been answered. [facility] /[id number]
[2017-12-06] MEDS: Acetaminophen 325 MG Tab PO PRN ×3 (08:18→17:14)
[2017-12-06] MEDS: Ferrous Sulfate 325 MG Tab PO SCH ×2 (08:18→20:04)
[2017-12-06] MEDS: Docusate Sodium 100 MG Cap PO PRN ×2 (08:18→20:04)
[2017-12-06] MEDS: Prenatal Multivitamin with Calcium/Folic Acid/Iron Tab PO SCH (08:18)
[2017-12-06] MEDS ORDERED: Acetaminophen/HYDROcodone 325-10 MG Tab PO PRN (20:09)
[2017-12-07] MEDS: Ibuprofen 800 MG Tab PO PRN (02:39)
[2017-12-07] MEDS: Acetaminophen 325 MG Tab PO PRN ×2 (05:35→10:04)
[2017-12-07 07:44] VITALS: BP 104/64
[2017-12-07] MEDS: Ferrous Sulfate 325 MG Tab PO SCH (08:51)
[2017-12-07] MEDS: Docusate Sodium 100 MG Cap PO PRN (08:51)
[2017-12-07] MEDS: Prenatal Multivitamin with Calcium/Folic Acid/Iron Tab PO SCH (08:51)
[2017-12-07] MEDS ORDERED: fentaNYL 100 MCG/2 ML SDV ITHECAL ONE (11:59)
[2017-12-07] MEDS ORDERED: EPINEPHrine 1 MG/ML SDV ONE (11:59)
[2017-12-07] MEDS ORDERED: Bupivacaine 0.75%/D5W 2 ML Amp ONE (11:59)
--- NOTE | 2017-12-08 01:23 | DISCH ---
ADMITTING DIAGNOSES: 1. A 39 and 0/7 weeks intrauterine based on last menstrual period in a 3, para 2-0-0-2 with history of macrosomia. 2. Blood type A positive, Group B streptococcus positive, treated with 2 doses of penicillin. Rubella immune. 3. Heartburn. 4. Varicella susceptible. 5. History of macrosomic infants. 6. Vitamin D deficiency 7. Anemia of 8. Recent diagnosis of erysipelas. DISCHARGE DIAGNOSES: 1. A 39 and 0/7 weeks intrauterine based on last menstrual period and 11-week ultrasound, 3, now para 3-0-0-3. 2. History of delivering of macrosomic . Blood type A positive, rubella immune, group B strep positive. 3. Heartburn. 4. Susceptible varicella. 5. Vitamin D deficiency. 6. Anemia of . 7. Recent diagnoses of erysipelas. 8. Status post vaginal delivery of viable female infant. BRIEF HISTORY: A 27-year-old female presented to the hospital with complaints of contractions that have been going for more than 24 hours and were beginning to be more regular and more intense. The patient was induced for labor due to history of macrosomia. See admission history and physical for full details. HOSPITAL COURSE: The patient's labor induction was initiated with IV Pitocin. Artificial rupture of membranes was attempted by medical student at approximately 1700 hours the day of delivery, and artificial rupture of membranes by physician was successful at 1930 hours on the day of delivery. The patient received intrathecal, and intrauterine pressure catheter was placed. The patient had successful vaginal delivery. Since delivery, the patient has been ambulating and tolerating a regular diet. She is voiding without complication. She has not had a bowel movement, but is having flatulence. Last night, the patient was having pain in her breast and lower back and received hydrocodone. The patient was visibly grateful and relieved and she was able to get some sleep with hydrocodone. The pain in her back does not radiate down the legs. She has not felt feverish, or has chills. The patient has no headache. No nausea, no vomiting. No upper abdominal pain. DISCHARGE CONDITION: Good. PHYSICAL EXAMINATION: Vital Signs: Temperature 97.5 Fahrenheit, pulse is 76, blood pressure 104/64, respirations of 16, with oxygen saturation 99% on room air. Head: Normocephalic, atraumatic. Heart: Regular without murmur. S1 and S2. Regular rate and rhythm. Lungs: Clear to auscultation bilaterally. No wheeze or rhonchi. Abdomen: Soft, nontender. Fundus is firm at umbilicus. Extremities: No edema of legs or hands. No erythema or tenderness of joints. LABORATORY DATA: Discharge hemoglobin of 8.8, admission hemoglobin of 10.4. No discharge platelets, but admission platelets of 229. DISPOSITION: Home with family. MEDICATIONS: 1. Iron 325 mg twice daily. 2. Colace 100 mg daily as needed for constipation. 3. Ibuprofen 600 mg every 6 hours as needed for pain. 4. Tylenol 650 mg every 6 hours as needed for pain. PLAN: Mother will be discharged from hospital today with . Infant will have weight and bilirubin check tomorrow in the clinic. Mother is to keep her prescheduled appointment on Tuesday for a weight check and bilirubin check. Mother is to make a 6 week post- appointment with Dr. Shah. During those 6 weeks, she is not to lift anything more than 20 pounds or heavier than the baby in the baby carrier. She needs to be on pelvic rest for those 6 weeks. Mother understands signs and symptoms of hyperbilirubinemia and when to bring in for further evaluation. All of her questions are answered. [facility] /[id number] Patient seen and examined. Agree with note as scribed on my behalf by Meghan Powell MS3. -[facility] 12/19/17 0848. ASTRID
== END 2017-12-07 12:00 | disposition home or self-care (01) | DRG 775 ==
LOC: EEVIPCON → DL.OBCHECK 06:06 → DL.OB 06:11 → OBSVTOIN 23:56 → DL.OB 23:56
PROVIDERS: ADMIT Family Medicine; ATTEND Family Medicine
PROC: 00HU33Z Insertion of Infusion Device into Spinal Canal, Percutaneous Approach (ICD-10-PCS; 2017-12-05)
PROC: 3E0R3BZ Introduction of Anesthetic Agent into Spinal Canal, Percutaneous Approach (ICD-10-PCS; 2017-12-05)
PROC: 10E0XZZ Delivery of Products of Conception, External Approach (ICD-10-PCS; principal; 2017-12-06)
PROC: 3E033VJ Introduction of Other Hormone into Peripheral Vein, Percutaneous Approach (ICD-10-PCS; 2017-12-06)
PROC: 10907ZC Drainage of Amniotic Fluid, Therapeutic from Products of Conception, Via Natural or Artificial Opening (ICD-10-PCS; 2017-12-06)
PROC: 6A550ZT Pheresis of Cord Blood Stem Cells, Single (ICD-10-PCS; 2017-12-06)
PROC: 10H07YZ Insertion of Other Device into Products of Conception, Via Natural or Artificial Opening (ICD-10-PCS; 2017-12-06)
DX: O99.824 Streptococcus B carrier state complicating childbirth (principal); Z37.0 Single live birth; O99.02 Anemia complicating childbirth; D64.9 Anemia, unspecified; Z3A.39 39 weeks gestation of pregnancy; O75.89 Other specified complications of labor and delivery; A46 Erysipelas; E55.9 Vitamin D deficiency, unspecified; Z88.8 Allergy status to other drugs, medicaments and biological substances
CPT/HCPCS: 01967; 36415; 51701; 59409; 85014; 85018; 85027; A9270-GY; J0171; J2405; J2540; J2590; J3010; J7050; J7120

== ENCOUNTER 2018-11-10 08:13 | Emergency (ER) | payer BC, MEDICAID ==
[2018-11-10 08:23] VITALS: BP 115/75
--- NOTE | 2018-11-10 08:32 | EDM.PDOC ---
ED HPI GENERAL MEDICAL PROBLEM - General Chief Complaint: Abdominal Pain Stated Complaint: BAD ABDOMINAL PAIN GOING INTO BACK [id number] Time Seen by Provider: 11/10/18 08:31 Source of Information: Reports: Patient, RN, RN Notes Reviewed History Limitations: Reports: No Limitations - History of Present Illness INITIAL COMMENTS - FREE TEXT/NARRATIVE: Pt to ER with c/o lower abdominal pain that wraps around into the back. She states the pain began this morning about 0600. She denies fever or chills. She admits to N/V, denies diarrhea. Last BM was this morning and was normal for her. Patient states she just had her first period last week since her child was born last November, has been . Patient states she has a history of kidney stones, but states this feels different. Patient denies any urinary symptoms. Onset: Today, Sudden Lower Abdominal Pain Score (Numeric/FACES): 6 - Related Data Allergies Allergy/AdvReac Type Severity Reaction Status Date / Time No Known Allergies Allergy Verified 11/10/18 08:24 Home Meds: Home Meds Acetaminophen [Tylenol] 650 mg PO Q4H PRN #30 tablet 12/07/17 [Rx] Ibuprofen [IJD: Ibuprofen] 600 mg PO Q6H PRN #30 tablet 12/07/17 [Rx] Past Medical History - Past Health History Medical/Surgical History: Denies Medical/Surgical History HEENT History: Reports: Impaired Vision Other HEENT History: wears glasses Cardiovascular History: Reports: None Respiratory History: Reports: None Gastrointestinal History: Reports: None Genitourinary History: Reports: Renal Calculus WHOLESALE BUYER History: Reports: Dysfunctional Uterine Bleeding, Other WHOLESALE BUYER History: is due 11/2017 Musculoskeletal History: Reports: Back Pain, Chronic Neurological History: Reports: None Psychiatric History: Reports: None Endocrine/Metabolic History: Reports: Other (See Below) Other Endocrine/Metabolic History: abnormal glucose tolerance test Hematologic History: Reports: None Immunologic History: Reports: None Oncologic (Cancer) History: Reports: None Dermatologic History: Reports: None - Infectious Disease History Infectious Disease History: Reports: None - Past Surgical History Head Surgeries/Procedures: Reports: None GI Surgical History: Reports: Appendectomy Social & Family History - Family History Family Medical History: Noncontributory - Tobacco Use Smoking Status *Q: Never Smoker Second Hand Smoke Exposure: No - Caffeine Use Caffeine Use: Reports: Coffee - Recreational Drug Use Recreational Drug Use: No ED ROS GENERAL - Review of Systems Review Of Systems: ROS reveals no pertinent complaints other than HPI. ED EXAM, GI/ABD - Physical Exam Exam: See Below Exam Limited By: No Limitations General Appearance: Alert, WD/WN, Mild Distress Eyes: Bilateral: Normal Appearance, EOMI Ears: Normal External Exam, Hearing Grossly Normal Nose: Normal Inspection Throat/Mouth: Normal Inspection, Normal Voice, No Airway Compromise Head: Atraumatic, Normocephalic Neck: Normal Inspection, Supple, Non-Tender, Full Range of Motion Respiratory/Chest: No Respiratory Distress, Lungs Clear, Normal Breath Sounds, No Accessory Muscle Use, Chest Non-Tender Cardiovascular: Normal Peripheral Pulses, Regular Rate, Rhythm, No Edema, No Gallop, No JVD, No Murmur, No Rub GI/Abdominal Exam: Normal Bowel Sounds, Soft, Tender (LLQ, RLQ) (Female) Exam: Deferred Rectal (Female) Exam: Deferred Back Exam: Normal Inspection, Full Range of Motion. No: CVA Tenderness (L), CVA Tenderness (R) Extremities: Normal Inspection, Normal Range of Motion, Non-Tender, No Pedal Edema, Normal Capillary Refill Neurological: Alert, Oriented, CN II-XII Intact, Normal Cognition, Normal Gait, Normal Reflexes, No Motor/Sensory Deficits Psychiatric: Normal Affect, Normal Mood Skin Exam: Warm, Dry, Intact, Normal Color, No Rash Lymphatic: No Adenopathy Course - Vital Signs Last Recorded V/S: Last Vital Signs Temp 97.5 F 11/10/18 08:19 Pulse 114 H 11/10/18 08:19 Resp 16 11/10/18 08:19 BP 115/75 11/10/18 08:19 Pulse Ox 100 11/10/18 08:19 - Orders/Labs/Meds Orders: Active Orders 24 hr Category Date Time Status Peripheral IV Care [RC] . DIRECTED Care 11/10/18 09:38 Active Sodium Chloride 0.9% [Saline Flush] Med 11/10/18 09:38 Active 10 ml FLUSH ASDIRECTED PRN Peripheral IV Insertion Adult [OM.PC] Stat Oth 11/10/18 09:38 Ordered Medication Orders Sodium Chloride (Saline Flush) 10 ml FLUSH ASDIRECTED PRN PRN Reason: Keep Vein Open Last Admin: 11/10/18 09:45 Dose: 10 ml Labs: Laboratory Tests 11/10/18 11/10/18 11/10/18 Range/Units 08:30 08:30 08:54 WBC 12.5 H (5.0-10.0) 10^3/uL RBC 5.19 (4.2-5.4) 10^6/uL Hgb 14.8 D (12.0-16.0) g/dL Hct 43.4 (37.0-47.0) % MCV 83.6 (80-100) fL MCH 28.5 (27.0-34.0) pg MCHC 34.1 (33.0-35.0) g/dL Plt Count 299 (150-450) 10^3/uL Neut % (Auto) 88.0 H (42.2-75.2) % Lymph % (Auto) 6.1 L (20.5-50.1) % [place] % (Auto) 5.3 (2-8) % Eos % (Auto) 0.5 L (1.0-3.0) % Baso % (Auto) 0.1 (0.0-1.0) % Sodium (135-145) mmol/L Potassium (3.6-5.0) mmol/L Chloride (101-111) mmol/L Carbon Dioxide (21.0-31.0) mmol/L Anion Gap BUN (7-18) mg/dL Creatinine (0.6-1.3) mg/dL Est Cr Clr Drug Dosing mL/min Estimated GFR (MDRD) BUN/Creatinine Ratio Glucose (74-105) mg/dL Calcium (8.4-10.2) mg/dl Total Bilirubin (0.2-1.0) mg/dL AST (10-42) IU/L ALT (10-60) IU/L Alkaline Phosphatase (42-121) IU/L Total Protein (6.7-8.2) g/dl Albumin (3.2-5.5) g/dl Globulin Albumin/Globulin Ratio Urine Color Yellow (YELLOW) Urine Appearance Clear (CLEAR) Urine pH 5.5 (5.0-9.0) Ur Specific [place] 1.025 (1.005-1.030) Urine Protein Negative (NEGATIVE) Urine Glucose (UA) Negative (NEGATIVE) Urine Ketones Negative (NEGATIVE) Urine Occult Blood Negative (NEGATIVE) Urine Nitrite Negative (NEGATIVE) Urine Bilirubin Negative (NEGATIVE) Urine Urobilinogen 0.2 (0.2-1.0) mg/dL Ur Leukocyte Esterase Negative (NEGATIVE) Urine HCG, Qual Negative 11/10/18 Range/Units 08:54 WBC (5.0-10.0) 10^3/uL RBC (4.2-5.4) 10^6/uL Hgb (12.0-16.0) g/dL Hct (37.0-47.0) % MCV (80-100) fL MCH (27.0-34.0) pg MCHC (33.0-35.0) g/dL Plt Count (150-450) 10^3/uL Neut % (Auto) (42.2-75.2) % Lymph % (Auto) (20.5-50.1) % [place] % (Auto) (2-8) % Eos % (Auto) (1.0-3.0) % Baso % (Auto) (0.0-1.0) % Sodium 136 (135-145) mmol/L Potassium 4.4 (3.6-5.0) mmol/L Chloride 108 (101-111) mmol/L Carbon Dioxide 19.0 L (21.0-31.0) mmol/L Anion Gap 13.4 BUN 16 (7-18) mg/dL Creatinine 0.6 (0.6-1.3) mg/dL Est Cr Clr Drug Dosing 138.17 mL/min Estimated GFR (MDRD) > 60 BUN/Creatinine Ratio 26.66 Glucose 90 (74-105) mg/dL Calcium 8.7 (8.4-10.2) mg/dl Total Bilirubin 0.8 (0.2-1.0) mg/dL AST 17 (10-42) IU/L ALT 13 (10-60) IU/L Alkaline Phosphatase 102 (42-121) IU/L Total Protein 7.6 (6.7-8.2) g/dl Albumin 4.2 (3.2-5.5) g/dl Globulin 3.4 Albumin/Globulin Ratio 1.24 Urine Color (YELLOW) Urine Appearance (CLEAR) Urine pH (5.0-9.0) Ur Specific [place] (1.005-1.030) Urine Protein (NEGATIVE) Urine Glucose (UA) (NEGATIVE) Urine Ketones (NEGATIVE) Urine Occult Blood (NEGATIVE) Urine Nitrite (NEGATIVE) Urine Bilirubin (NEGATIVE) Urine Urobilinogen (0.2-1.0) mg/dL Ur Leukocyte Esterase (NEGATIVE) Urine HCG, Qual Meds: Medications Generic Name Dose Route Start Last Admin Trade Name Rafat PRN Reason Stop Dose Admin Sodium Chloride 10 ml 11/10/18 09:38 11/10/18 09:45 Saline Flush FLUSH 10 ml ASDIRECTED PRN Administration Keep Vein Open Discontinued Medications Generic Name Dose Route Start Last Admin Trade Name Freirina PRN Reason Stop Dose Admin Sodium Chloride 1,000 mls @ 999 mls/hr 11/10/18 09:38 11/10/18 10:06 Normal Saline IV 11/10/18 10:38 999 mls/hr .BOLUS ONE Administration Iopamidol 75 ml 11/10/18 09:37 11/10/18 09:58 Isovue-300 (61%) IVPUSH 11/10/18 09:38 75 ml ONETIME ONE Administration Ketorolac Tromethamine 30 mg 11/10/18 09:38 11/10/18 10:06 Toradol IVPUSH 11/10/18 09:39 30 mg ONETIME ONE Administration - Radiology Interpretation Free Text/Narrative:: CT abdomen/pelvis with and without contrast: No acute findings See rad report Departure - Departure Time of Disposition: 10:59 Disposition: Home, Self-Care 01 Condition: Fair Clinical Impression: Gastroenteritis Vomiting Qualifiers: Vomiting type: unspecified Vomiting Intractability: unspecified Nausea presence : with nausea Qualified Code(s): R11.2 - Nausea with vomiting, unspecified - Discharge Information *PRESCRIPTION DRUG MONITORING PROGRAM REVIEWED*: No *COPY OF PRESCRIPTION DRUG MONITORING REPORT IN PATIENT CLAUDIA: No Instructions: Viral Gastroenteritis, Adult, [id number], Abdominal Pain, Adult , [id number] Forms: ED Department Discharge Additional Instructions: Drink small sips frequently RX: Zofran for nausea May use imodium as directed if you develop diarrhea Rest May use Tylenol and/or ibuprofen as directed for pain/fever - My Orders Last 24 Hours: My Active Orders 11/10/18 09:38 Peripheral IV Care [RC] . DIRECTED Sodium Chloride 0.9% [Saline Flush] 10 ml FLUSH ASDIRECTED PRN Peripheral IV Insertion Adult [OM.PC] Stat - Assessment/Plan Last 24 Hours: My Active Orders 11/10/18 09:38 Peripheral IV Care [RC] . DIRECTED Sodium Chloride 0.9% [Saline Flush] 10 ml FLUSH ASDIRECTED PRN Peripheral IV Insertion Adult [OM.PC] Stat
[2018-11-10 09:19] LABS: ANION GAP 13.4; CHLORIDE,CL 108 mmol/L (101-111); SODIUM,NA 136 mmol/L (135-145)
[2018-11-10] MEDS ORDERED: Iopamidol 612 MG/ML 75 ML Bottle IVPUSH ONE (09:37)
[2018-11-10] MEDS ORDERED: Sodium Chloride 0.9% 1,000 ML IV ONE (09:38)
[2018-11-10] MEDS ORDERED: Sodium Chloride 0.9% 10 ML Syringe FLUSH PRN (09:38)
[2018-11-10] MEDS ORDERED: Ketorolac 30 MG/ML SDV IVPUSH ONE (09:38)
--- NOTE | 2018-11-10 10:57 | CT ---
CLINICAL HISTORY: 28-year-old female with "abdominal pain" who was reported on [address] examination to have "discrete 5.5 mm oval calcification lower pole calyx right kidney (normal left kidney and bladder") follow up evaluation please this 190 pound female was also had appendectomy. SCAN TECHNIQUE: Volume acquisition of data from the abdomen and pelvis obtained on an emergency basis without oral contrast but before and during intravenous infusion 75 cc nonionic Isovue contrast (2.5 cc/s via injector) while the patient was lying supine on the Siemens multislice scanner [place], [place]. All data archived in the PACS system for storage, reformatting axial/sagittal/coronal planes and study. INTERPRETATION: 1. Subtle density renal pyramids suggesting dehydration. No renal calculus identified today or signs of obstructive uropathy, i.e., no pyelocaliectasis or ureterectasis. Collapsed urinary bladder without intraluminal calcifications. 2. Solitary small diameter low-attenuation, vascular peripheral nodule posteriorly midpole right lobe of the liver that most probably represents a cavernous hemangioma. Ultrasound correlation recommended. No other hepatic parenchymal mass. No abnormal dilatation of intra or extrahepatic biliary ducts. Normal gallbladder. 3. Stomach, spleen, pancreas and adrenal glands unremarkable. Normal appendix RLQ. No diverticulitis. 4. Lordotic lumbar spine. No pathologic skeletal lesion, fracture/dislocation. Normal abdominal aorta. No aneurysm/dissection. 5. No abdominal or pelvic mass lesion, mesenteric/retroperitoneal lymphadenopathy, inflammatory "dirty" peritoneal fat, signs of mechanical bowel obstruction, ascites or free intraperitoneal air. No ventral wall or inguinal hernias. Lung bases clear. CONCLUSION: Negative exam. No peritonitis. Specifically, no sign of urolithiasis or obstructive uropathy.
== END 2018-11-10 11:12 | disposition home or self-care (01) ==
LOC: DL.ED 08:13
DX: K52.9 Noninfective gastroenteritis and colitis, unspecified (principal)
CPT/HCPCS: 36415; 74178; 80053; 81003; 81025; 85025; 96361; 96374; 99284; J1885; J7030; Q9967

== ENCOUNTER 2018-11-12 07:32 | Emergency (ER) | payer BC, MEDICAID ==
[2018-11-12 07:44] VITALS: BP 133/85
--- NOTE | 2018-11-12 07:44 | EDM.PDOC ---
ED HPI GENERAL MEDICAL PROBLEM - General Chief Complaint: ENT Problem Stated Complaint: THROAT HURTS Time Seen by Provider: 11/12/18 07:44 Source of Information: Reports: Patient, RN, RN Notes Reviewed History Limitations: Reports: No Limitations - History of Present Illness INITIAL COMMENTS - FREE TEXT/NARRATIVE: Pt to ER with c/o sore throat. Patient states the sore throat began on Tuesday evening and has progressively gotten worse. She states it is difficult to swallow anything. Admits to fever and chills yesterday. Onset: Gradual Onset Date: 11/10/18 Duration: Constant, Getting Worse Throat Pain Score (Numeric/FACES): 10 - Related Data Allergies Allergy/AdvReac Type Severity Reaction Status Date / Time No Known Allergies Allergy Verified 11/12/18 07:44 Home Meds: Home Meds Acetaminophen [Tylenol] 650 mg PO Q4H PRN #30 tablet 12/07/17 [Rx] Ibuprofen [IJD: Ibuprofen] 600 mg PO Q6H PRN #30 tablet 12/07/17 [Rx] Past Medical History - Past Health History Medical/Surgical History: Denies Medical/Surgical History HEENT History: Reports: Impaired Vision Other HEENT History: wears glasses Cardiovascular History: Reports: None Respiratory History: Reports: None Gastrointestinal History: Reports: None Genitourinary History: Reports: Renal Calculus 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 ENGINEER History: Reports: Dysfunctional Uterine Bleeding, Other NUCLEAR ENGINEER History: is due 11/2017 Musculoskeletal History: Reports: Back Pain, Chronic Neurological History: Reports: None Psychiatric History: Reports: None Endocrine/Metabolic History: Reports: Other (See Below) Other Endocrine/Metabolic History: abnormal glucose tolerance test Hematologic History: Reports: None Immunologic History: Reports: None Oncologic (Cancer) History: Reports: None Dermatologic History: Reports: None - Infectious Disease History Infectious Disease History: Reports: None - Past Surgical History Head Surgeries/Procedures: Reports: None GI Surgical History: Reports: Appendectomy Social & Family History - Family History Family Medical History: Noncontributory - Tobacco Use Smoking Status *Q: Never Smoker Second Hand Smoke Exposure: No - Caffeine Use Caffeine Use: Reports: Coffee - Recreational Drug Use Recreational Drug Use: No ED ROS ENT - Review of Systems Review Of Systems: ROS reveals no pertinent complaints other than HPI. ED EXAM, ENT - Physical Exam Exam: See Below Exam Limited By: No Limitations General Appearance: Alert, WD/WN, Mild Distress Eye Exam: Bilateral Eye: EOMI, Normal Inspection Ears: Normal External Exam, Hearing Grossly Normal Nose: Normal Inspection Mouth/Throat: Muffled Voice, Pharyngeal Erythema, Tonsillar Erythema, Tonsillar Swelling (+2) Head: Atraumatic Neck: Normal Inspection, Full Range of Motion Respiratory/Chest: No Respiratory Distress, Lungs Clear, Normal Breath Sounds, No Accessory Muscle Use, Chest Non-Tender Cardiovascular: Normal Peripheral Pulses, Regular Rate, Rhythm, No Edema, No Gallop, No JVD, No Murmur, No Rub GI/Abdominal: Normal Bowel Sounds, Soft, Non-Tender (Female) Exam: Deferred Rectal (Female) Exam: Deferred Back: Normal Inspection, Full Range of Motion Extremities: Normal Inspection, Normal Range of Motion, Non-Tender, No Pedal Edema, Normal Capillary Refill Neurological: Alert, Oriented, CN II-XII Intact, Normal Cognition, Normal Gait, Normal Reflexes, No Motor/Sensory Deficits Psychiatric: Normal Affect, Normal Mood Skin: Warm, Dry, Intact, Normal Color, No Rash Lymphatic: No Adenopathy Course - Vital Signs Last Recorded V/S: Last Vital Signs Temp 97.7 F 11/12/18 07:38 Pulse 115 H 11/12/18 07:38 Resp 16 11/12/18 07:38 BP 133/85 11/12/18 07:38 Pulse Ox 96 11/12/18 07:38 - Orders/Labs/Meds Labs: Rapid Strep: Positive Meds: Medications Discontinued Medications Generic Name Dose Route Start Last Admin Trade Name Raq PRN Reason Stop Dose Admin Amoxicillin/Clavulanate Potassium 1 tab 11/12/18 07:56 Augmentin 875 Mg/125 Mg PO 11/12/18 07:57 ONETIME ONE Departure - Departure Time of Disposition: 07:55 Disposition: Home, Self-Care 01 Condition: Fair Clinical Impression: Strep throat - Discharge Information *PRESCRIPTION DRUG MONITORING PROGRAM REVIEWED*: No *COPY OF PRESCRIPTION DRUG MONITORING REPORT IN PATIENT CLAUDIA: No Instructions: Strep Throat, [id number], Sore Throat, [id number] Forms: ED Department Discharge Additional Instructions: RX: Azithromycin May use Tylenol and/or ibuprofen as directed for pain/fever Follow up with your primary care facility if no improvement
[2018-11-12] MEDS ORDERED: Amoxicillin/Clavulanate K 875-125 MG Tab PO ONE (07:56)
[2018-11-12] MEDS ORDERED: Penicillin G Benzathine/Procaine 600-600 1.2 Millunits/2 ML Syringe IM ONE (08:04)
== END 2018-11-12 08:13 | disposition home or self-care (01) ==
LOC: DL.ED 07:32
DX: J02.0 Streptococcal pharyngitis (principal)
CPT/HCPCS: 87430; 96372; 99283; J0558

== ENCOUNTER 2021-10-24 19:47 | Emergency (ER) | payer BC, MEDICAID ==
[2021-10-24 20:42] VITALS: BP 148/104; PULSE 94
[2021-10-24 21:42] LABS: CHLORIDE,CL 103 mmol/L (98-107); SODIUM,NA 138 mmol/L (136-145)
== END 2021-10-24 23:01 | disposition home or self-care (01) ==
LOC: DL.ED 19:47
DX: O20.9 Hemorrhage in early pregnancy, unspecified (principal); Z3A.09 9 weeks gestation of pregnancy
CPT/HCPCS: 36415; 76815; 80053; 84702; 85025; 86900; 86901; 99284-25

== ENCOUNTER 2022-12-20 22:19 | Emergency (ER) | payer BC ==
[2022-12-20 22:45] VITALS: BP 131/81; PULSE 106
[2022-12-20] MEDS ORDERED: Sodium Chloride 0.9% 10 ML Syringe FLUSH PRN (23:08)
[2022-12-20 23:53] LABS: PTT,PARTIAL THROMBOPLSTIN TIME 25.5 SEC (22.0-34.0)
[2022-12-20 23:56] LABS: ANION GAP 12.8 mEq/L (7-13); CHLORIDE,CL 106 mmol/L (98-107); SODIUM,NA 139 mmol/L (136-145)
[2022-12-21 00:12] LABS: ESTIMATED GFR 91 mL/min (>=60)
[2022-12-21] MEDS ORDERED: Ketorolac 30 MG/ML SDV IVPUSH ONE (00:51)
== END 2022-12-21 01:09 | disposition home or self-care (01) ==
LOC: DL.ED 22:19
DX: R07.89 Other chest pain (principal); R07.2 Precordial pain
CPT/HCPCS: 36415; 71045; 80053; 83605; 83735; 84484; 85025; 85379; 85610; 85730; 86140; 93005; 93010; 99284; 99285; J3490

== ENCOUNTER 2023-10-16 05:36 | Emergency (ER) | payer BC ==
[2023-10-16 06:09] LABS: APPEARANCE,URINE CLEAR (CLEAR); BILIRUBIN,URINE NEGATIVE (NEGATIVE); COLOR,URINE YELLOW (YELLOW); GLUCOSE,URINE NEGATIVE (NEGATIVE); KETONES,URINE NEGATIVE (NEGATIVE); LEUKOCYTE ESTERASE,URINE TRACE (NEGATIVE); NITRITE,URINE NEGATIVE (NEGATIVE); OCCULT BLOOD,URINE LARGE (NEGATIVE); PH,URINE 5.5 (5.0-9.0); PROTEIN,URINE NEGATIVE (NEGATIVE); UROBILINOGEN,URINE 0.2 mg/dL (0.2-1.0)
[2023-10-16 06:12] LABS: AMPHETAMINES,URINE NEGATIVE (NEGATIVE); BARBITURATES,URINE NEGATIVE (NEGATIVE); BENZODIAZEPINE,URINE NEGATIVE (NEGATIVE); MDMA (ECSTASY), URINE NEGATIVE (NEGATIVE); METHADONE,URINE NEGATIVE (NEGATIVE); METHAMPHETAMINES,URINE NEGATIVE (NEGATIVE); OPIATES,URINE NEGATIVE (NEGATIVE); OXYCODONE,URINE NEGATIVE (NEGATIVE); PHENCYCLIDINE,URINE NEGATIVE (NEGATIVE); TCA,URINE NEGATIVE (NEGATIVE)
[2023-10-16 06:15] VITALS: PULSE 94
[2023-10-16 06:20] LABS: ALBUMIN 4.2 g/dL (3.4-5.0); ANION GAP 16.1 mEq/L (7-13); BILIRUBIN TOTAL 0.2 mg/dL (0.2-1.0); BUN/CREATININE RATIO 7.9 (No establ ref range); CALCIUM 8.5 mg/dL (8.5-10.1); CREATININE 0.76 mg/dL (0.55-1.02); EST CRCL DRUG DOSING (CG) 104.3 mL/min; POTASSIUM,K 4.1 mmol/L (3.5-5.1); PROTEIN TOTAL,TP 8.3 g/dL (6.4-8.2)
[2023-10-16 06:21] LABS: BACTERIA,URINE FEW /HPF (0-FEW/HPF); EPITHELIAL CELLS,URINE FEW /HPF (NOT SEEN); RBC,URINE 50-75 /HPF (0-5)
[2023-10-16 06:22] LABS: AMORPHOUS SEDIMENT,URINE FEW /HPF (NOT SEEN); MUCUS,URINE FEW /LPF (NOT SEEN)
[2023-10-16 06:23] LABS: BASOPHILS PERCENT AUTO 0.8 % (0.0-1.0); HEMATOCRIT 37.7 % (37.0-47.0); HEMOGLOBIN 12.3 g/dL (12.0-16.0); LYMPHOCYTES PERCENT AUTO 23.6 % (20.5-50.1); MEAN CORPUSCULAR HGB CONC 32.6 g/dL (33.0-35.0); MEAN CORPUSCULAR VOLUME 73.6 fL (80-100); MONOCYTES PERCENT AUTO 4.9 % (2-8); NEUTROPHILS PERCENT AUTO 69.7 % (42.2-75.2); PLATELET COUNT,PLT 438 10^3/uL (150-450); RED BLOOD CELL COUNT 5.12 10^6/uL (4.2-5.4); WHITE BLOOD CELL COUNT,WBC 7.2 10^3/uL (5.0-10.0)
[2023-10-16 07:51] VITALS: BP 116/80
== END 2023-10-16 08:20 | disposition left against medical advice (07) ==
LOC: DL.ED 05:36
DX: F10.120 Alcohol abuse with intoxication, uncomplicated (principal); Y90.7 Blood alcohol level of 200-239 mg/100 ml
CPT/HCPCS: 36415; 80053; 80143; 80179; 80305-QW; 80307; 81001; 81025; 85025; 87086; 99283; 99284

== ENCOUNTER 2024-11-22 21:10 | Emergency (ER) | payer BC ==
[2024-11-22 22:04] LABS: APPEARANCE,URINE CLOUDY (CLEAR); BILIRUBIN,URINE SMALL (NEGATIVE); COLOR,URINE YELLOW (YELLOW); GLUCOSE,URINE NEGATIVE (NEGATIVE); KETONES,URINE NEGATIVE (NEGATIVE); LEUKOCYTE ESTERASE,URINE LARGE (NEGATIVE); NITRITE,URINE POSITIVE (NEGATIVE); OCCULT BLOOD,URINE LARGE (NEGATIVE); PROTEIN,URINE >=300 (NEGATIVE)
[2024-11-22 22:13] LABS: WBC,URINE 30-40 /HPF (0-5/HPF)
[2024-11-22 22:14] LABS: BACTERIA,URINE MODERATE /HPF (0-FEW/HPF); EPITHELIAL CELLS,URINE FEW /HPF (NOT SEEN); RBC,URINE 40-50 /HPF (0-5)
[2024-11-22] MEDS: Ciprofloxacin 500 MG Tab PO ONE (22:37)
[2024-11-22 22:43] VITALS: BP 141/91; PULSE 93
== END 2024-11-22 22:40 | disposition home or self-care (01) ==
LOC: DL.ED 21:10
DX: N12 Tubulo-interstitial nephritis, not specified as acute or chronic (principal)
CPT/HCPCS: 81001; 81025; 87086; 99283; 99284; A9270; 87088; 87186

== ENCOUNTER 2025-04-16 00:39 | Emergency (ER) | payer BC, MEDICAID ==
[2025-04-16] MEDS: Ondansetron 4 MG/2 ML SDV IVPUSH ONE (01:13)
[2025-04-16] MEDS: Ketorolac 30 MG/ML SDV IVPUSH ONE (01:24)
[2025-04-16] MEDS: Propofol 200 MG/20 ML SDV IVPUSH ONE (03:48)
[2025-04-16] MEDS: Take Home: Acetaminophen/HYDROcodone 325-5 MG, 5 Tab Pack PO ONE (04:46)
[2025-04-16 05:30] VITALS: BP 135/90; PULSE 69
== END 2025-04-16 04:48 | disposition home or self-care (01) ==
LOC: DL.ED 00:39
DX: M24.411 Recurrent dislocation, right shoulder (principal); Z79.899 Other long term (current) drug therapy; Z90.49 Acquired absence of other specified parts of digestive tract
CPT/HCPCS: 23650; 73020-RT; 73030-RT; 96374; 96375; 99283-25; A9270-GY; J1171; J1885; J2270; J2405; J2704